=== PATIENT | female | born 1985 | race Caucasian/White ===

== ENCOUNTER 2017-03-22 08:46 | Emergency (ER) | payer SELFPAY ==
[~2017-03-22] VITALS: Ht 167.6 cm; Wt 77.0 kg
[2017-03-22] MEDS ORDERED: CEPHALEXIN500 MG PO (08:59)
[2017-03-22] MEDS ORDERED: LISINOPRIL20 MG PO (08:59)
[2017-03-22] MEDS ORDERED: HYDROCHLOROTHIA50 MG PO (08:59)
[2017-03-22 09:58] VITALS: BP 159/100
== END 2017-03-22 10:01 | disposition home or self-care (01) | DRG 153 ==
LOC: ED 08:46
DX: J02.0 Streptococcal pharyngitis (principal); I10 Essential (primary) hypertension
CPT/HCPCS: J0561

== ENCOUNTER 2017-10-02 03:45 | Emergency (ER) | payer SELFPAY ==
[~2017-10-02] VITALS: Ht 167.6 cm; Wt 84.1 kg
[~2017-10-02 03:45] MED LIST: CEPHALEXIN500 MG PO; HYDROCHLOROTHIA50 MG PO; LISINOPRIL20 MG PO
[2017-10-02 04:34] LABS: HEMOGLOBIN 10.7 g/dl (12.0-16.0); IMMATURE GRANULOCYTES 0.9 % (0.0-1.0); MEAN CELL VOLUME 109.2 fL CALC (80.0-100.0); MEAN CORPUSCULAR HGB 37.7 pG CALC (26.0-32.0); MEAN CORPUSCULAR HGB CONC 34.5 g/L CALC (32.0-36.0); NEUT# 12.56 thou/uL (2.00-7.15); RED BLOOD COUNT 2.84 mill/uL (4.20-5.60); RED CELL DISTRI WIDTH 14.7 % (11.5-15.5)
[2017-10-02 04:43] LABS: ALBUMIN 2.5 g/dL (3.2-5.0); ALKALINE PHOSPHATASE 166 u/l (38-126); ANION GAP 24 (6-22 (CALC)); BILIRUBIN, TOTAL 3.7 mg/dL (0.0-1.4); BUN 12 mg/dL (7-17); BUN/CREATININE RATIO 10 (12-20 (CALC)); CARBON DIOXIDE 24 mmol/l (22-30); CHLORIDE 87 mmol/l (95-108); CREATININE 1.1 mg/dL (0.5-1.0); ETHYL ALCOHOL 55 mg/dl (0-30); GFR 57 ML/MIN (>=60 (CALC)); GFR FOR AFR.AMER. > 60 ML/MIN (>=60 (CALC)); POTASSIUM 3.2 mmol/l (3.5-5.1); SGOT/AST 524 u/l (14-36); SGPT/ALT 81 u/l (9-52); SODIUM 132 mmol/l (137-146); TOTAL PROTEIN 7.4 g/dL (6.3-8.2)
[2017-10-02 05:00] LABS: INTERNATIONAL NORMALIZED RATIO 1.7 RATIO (0.7-1.3); PROTHROMBIN TIME 19.4 SECONDS (9.0-12.5)
[2017-10-02 06:23] LABS: URINE BLOOD DIPSTICK LARGE (NEGATIVE); URINE COLOR YELLOW; URINE GLUCOSE - DIPSTICK NEGATIVE (NEGATIVE); URINE KETONE NEGATIVE (NEGATIVE); URINE LEUK ESTERASE TRACE (NEGATIVE); URINE PROTEIN - DIPSTICK 100 mg/dL (NEG-TRACE)
[2017-10-02 06:27] LABS: BARBITURATES NEGATIVE (NEGATIVE); COCAINE NEGATIVE (NEGATIVE); METHADONE NEGATIVE (NEGATIVE); OXCYCODONE NEGATIVE (NEGATIVE); TETRAHYDROCANNABIONOL NEGATIVE (NEGATIVE); TRICYLIC ANTIDEPRESSANTS NEGATIVE (NEGATIVE); URINE BILIRUBIN - DIPSTICK SMALL (NEGATIVE); URINE CLARITY CLEAR; URINE NITRITE - DIPSTICK POSITIVE (Negative)
[2017-10-02 06:40] LABS: URINE BACTERIA MODERATE hpf; URINE TRANSITIONAL EPI. CELLS FEW hpf
[2017-10-02 06:41] LABS: URINE HYALINE CAST FEW lpf (NONE-RARE); URINE MUCUS FEW hpf (NONE-FEW); URINE RED BLOOD CELL CAST RARE lpf
[2017-10-02 08:59] VITALS: BP 134/59
--- NOTE | 2017-10-04 07:47 | NUR ---
BLOOD AND URINE CULTURE RESULTS FAXED TO [facility] ON 10/04/17 FAX#[phone] FINAL BLOOD RESULTS WILL BE FAXED WHEN AVAILABLE.
== END 2017-10-02 09:00 | disposition short-term general hospital (02) | DRG 434 ==
LOC: ED 03:45
PROVIDERS: Emergency Medicine
DX: K74.60 Unspecified cirrhosis of liver (principal); B19.20 Unspecified viral hepatitis C without hepatic coma; I10 Essential (primary) hypertension; B95.2 Enterococcus as the cause of diseases classified elsewhere
CPT/HCPCS: J2060